=== PATIENT | female | born 1990 ===

== ENCOUNTER 2021-02-02 13:03 | Outpatient (CLI) | payer OTHER ==
[2021-02-02 16:31] LABS: Bacteria,Urine 1+ /HPF (Negative); Mucus,Urine FEW /HPF
[2021-02-02 16:32] LABS: Bilirubin,Urine NEG (Negative); Blood,Urine NEG (Negative); Color,Urine Yellow (Yellow); Protein,Urine >500 mg/dL (Negative); Urobilinogen,Urine < 2.0 mg/dL (<2.0)
[2021-02-02 16:47] LABS: Hematocrit 31.3 % (30.3-42.9); Hemoglobin 10.8 gm/dl (10.1-14.3); Mean Corpuscular HGB Conc 34 % (30-34); Mean Corpuscular Volume 91 fl (79-97); Platelet Count 207 K/mm3 (140-440); Red Blood Count 3.45 M/mm3 (3.65-5.03); Red Cell Distribution Width 14.2 % (13.2-15.2)
[2021-02-02] MEDS ORDERED: ACETAMINOPHEN 500 MG TAB PO ONE (17:03)
[2021-02-02 17:10] LABS: Alanine Aminotransferase 11 units/L (7-56)
[2021-02-02 18:09] VITALS: BP 129/77
== END 2021-02-02 18:54 | disposition home or self-care (01) ==
LOC: TRG 13:03 → APU 13:06 → TRG 18:54
DX: O13.3 Gestational [pregnancy-induced] hypertension without significant proteinuria, third trimester (principal); Z3A.39 39 weeks gestation of pregnancy
CPT/HCPCS: 36415; 59025; 81001; 82565; 83615; 84450; 84460; 84550; 85027

== ENCOUNTER 2021-02-05 10:44 | Inpatient (IN) | payer OTHER ==
[2021-02-05 11:49] LABS: Hematocrit 32.3 % (30.3-42.9); Hemoglobin 10.9 gm/dl (10.1-14.3); Mean Corpuscular HGB Conc 34 % (30-34); Mean Corpuscular Volume 92 fl (79-97); Platelet Count 228 K/mm3 (140-440); Red Blood Count 3.53 M/mm3 (3.65-5.03); Red Cell Distribution Width 14.7 % (13.2-15.2)
--- NOTE | 2021-02-05 13:06 | Ultrasound Report ---
US OB BPP WO NON-STRESS US OB LIMITED INDICATION / CLINICAL INFORMATION: decreased fm. COMPARISON: 2 days prior FINDINGS: breathing movement = 2 Gross body movement = 2 tone = 2 Qualitative amniotic fluid volume = 2 Total biophysical score = 8/8 Amniotic fluid index is 17.6 cm. Presentation is Cephalic. heart rate is 151-171 beats per minute. IMPRESSION: 1. biophysical profile = 05/02 2. Amniotic fluid index is 17.6 cm (previously 13.9 cm). Signer Name: Дмитрий Boland MD Signed: 02/05/2021 1:01 PM Workstation Name: [id number]
[2021-02-05 13:19] LABS: Alanine Aminotransferase 13 units/L (7-56); Uric Acid 5.5 mg/dL (3.5-7.6)
[2021-02-05 14:44] LABS: Bilirubin,Urine NEG (Negative); Blood,Urine NEG (Negative); Color,Urine Yellow (Yellow); Mucus,Urine FEW /HPF; Urobilinogen,Urine < 2.0 mg/dL (<2.0)
[2021-02-05 14:50] LABS: Protein,Urine >500 mg/dL (Negative)
[2021-02-05] MEDS ORDERED: TERBUTALINE 1 MG/1 ML INJ SUB-Q PRN (15:37)
[2021-02-05] MEDS ORDERED: LIDOCAINE (2%) 20 MG/1 ML VIAL 20 ML MDV INFILTRATI ONE (15:37)
[2021-02-05] MEDS ORDERED: ePHEDrine SULFATE 50 MG/1 ML INJ IV PRN (15:37)
[2021-02-05] MEDS ORDERED: DINOPROSTONE 10 MG VAG SUPP VG NR (15:37)
[2021-02-05] MEDS ORDERED: MAGNESIUM SULFATE 4 GM/100 ML BAG IV ONE (15:40)
[2021-02-05] MEDS ORDERED: LACTATED RINGERS 1,000 ML IV SCH (15:45)
[2021-02-05] MEDS ORDERED: LACTATED RINGERS 1,000 ML ONE (15:49)
[2021-02-05] MEDS ORDERED: ACETAMINOPHEN 500 MG TAB PO ONE ×2 (15:49→21:15)
[2021-02-05] MEDS ORDERED: OXYTOCIN DRIP 30 UNITS/500 ML BAG IV SCH ×2 (16:00→18:00)
[2021-02-05] MEDS: MAGNESIUM SULFATE 40GM/1000ML 40 GM/1,000 ML BAG IV SCH (16:49)
--- NOTE | 2021-02-05 17:24 | History and Physical Report ---
History of Present Illness Date of examination: 02/05/21 Date of admission: 02/05/2021 Chief complaint: Headache, nausea, decreased movement. History of present illness: 30 year old female sent from office due to persistent headache and decreased movement for at least past 3 days. Patient reports headache was not relieved by Tylenol. Reports nausea. Denies visual disturbance. Patient received care at [facility] and records are available. LMP 05/02/2020. EDC 02/06/21. Confirmed by US done at 25 weeks in [place]. significant for the following: Late transfer in from [place], anemia (on iron supplementation), hypothyroidism (has had partial thyroidectomy); takes levothyroxine 100 mcg daily, late care, elevated blood pressures past few visits at the office. labs are as follows: B+, antibody screen negative, rubella immune, hepatitis B surface antigen negative, HIV negative, RPR nonreactive, gonorrhea negative, chlamydia negative, 1 hour sugar test 130, GBS negative. Past History Past Medical History: other (thyroid disease) Past Surgical History: thyroid (partial thyroidectomy) [facility] History: denies: chlamydia, gonorrhea, hepatitis B, herpes, HIV, syphilis, trichomonas Family/Genetic History: none Social history: single, full code. denies: smoking, alcohol abuse, IV drug use - Obstetrical History Expected Date of Delivery: 02/06/21 Actual Gestation: 39 Week(s) 6 Day(s) : 1 Para: 0 Hx # Term Pregnancies: 0 Number of Pregnancies: 0 Spontaneous Abortions: 0 Induced : 0 Number of Living Children: 0 Medications and Allergies Allergies Allergy/AdvReac Type Severity Reaction Status Date / Time No Known Allergies Allergy Verified 02/02/21 15:13 Active Meds: Active Medications Acetaminophen (Acetaminophen 500 Mg Tab) 500 mg PO ONCE ONE Stop: 02/05/21 15:50 Dinoprostone (Dinoprostone 10 Mg Vag Supp) 10 mg VG ONCE ONE Stop: 02/05/21 15:38 Ephedrine Sulfate (Ephedrine Sulfate 50 Mg/1 Ml Inj) 10 mg IV Q2M PRN PRN Reason: Hypotension Lactated Ringer's (Lactated Ringers) 1,000 mls @ 125 mls/hr IV DIRECT MIGUE Oxytocin/Sodium Chloride (Pitocin/Ns 30 Unit/500ml) 30 units in 500 mls @ 40 mls/hr IV TITR MIGUE; Protocol Magnesium Sulfate (Magnesium Sulfate 4gm/100ml) 4 gm in 100 mls @ 300 mls/hr IV ONCE ONE Stop: 02/05/21 15:59 Magnesium Sulfate (Magnesium Sulfate 40gm/1000ml) 40 gm in 1,000 mls @ 50 mls/hr IV DIRECT MIGUE Lidocaine (Lidocaine (2%) 20 Mg/1 Ml Vial 20 Ml Mdv) 20 ml INFILTRATI ONCE ONE Stop: 02/05/21 15:38 Terbutaline Sulfate (Terbutaline 1 Mg/1 Ml Inj) 0.25 mg SUB-Q ONCE PRN PRN Reason: Hyperstimulation/Hypertonicity Review of Systems All systems: negative (headache, nausea, and decreased movement) - Vital Signs Vital signs: Vital Signs Pulse BP 84 136/85 02/05/21 11:07 02/05/21 11:07 Temp Pulse Resp BP Pulse Ox 97.7 F 76 163/86 96 02/05/21 15:46 02/05/21 15:46 02/05/21 15:37 02/05/21 15:46 - Physical Exam Abdomen: Positive: normal appearance, soft. Negative: distention, tenderness, guarding, rigidity Genitourinary (Female): Positive: normal external genitalia, normal perenium. Negative: perineal/vulvar lesions Vagina: Positive: normal moisture Uterus: Positive: enlarged. Negative: tender Anus/Rectum: Positive: normal perianal skin Extremities: Negative: tenderness - Obstetrical FHR: category 1 Uterine Contraction Monitor Mode: External Cervical Dilatation: 1 Cervical Effacement Percentage: 50 station: -1 Uterine Contraction Pattern: Absent Uterine Contraction Intensity: Mild Results Result Diagrams: 02/05/21 Unknown 02/05/21 Unknown Abnormal lab results 02/05/21 02/05/21 Range/Units Unknown Unknown RBC 3.53 L (3.65-5.03) M/mm3 Lactate Dehydrogenase 230 H (91-180) units/L All other labs normal. Assessment and Plan A: at 39 weeks, 6 days gestation. Preeclampsia with severe features. Hypothyroidism; partial thyroidectomy. GBS negative. P: Admit. Labs. Continuous EFM. Cervidil for cervical ripening, followed by IOL. Discussed cervical ripening and IOL and patient gave consent. Magnesium Sulfate. Consulted with Dr. Cardona re: this patient. Patient will be co-managed with MD due to preeclampsia with severe features.
[2021-02-05] MEDS: fentaNYL 100 MCG/2 ML INJ IV PRN (21:43)
[2021-02-06] MEDS ORDERED: LACTATED RINGERS 1,000 ML ONE (00:27)
[2021-02-06] MEDS: fentaNYL 100 MCG/2 ML INJ IV PRN ×2 (00:44→21:34)
[2021-02-06] MEDS ORDERED: ACETAMINOPHEN 500 MG TAB PO ONE (05:56)
[2021-02-06] MEDS: LACTATED RINGERS 1,000 ML IV SCH ×3 (06:31→21:58)
--- NOTE | 2021-02-06 06:56 | Progress Note ---
Assessment and Plan A: at 40 weeks gestation. Preeclampsia with severe features. Hypothyroidism. P: Continuous EFM. Continue Pitocin IOL. Continue magnesium sulfate. Report given to Dr. Cardona who takes over at 08:00 am. Subjective - Subjective Date of service: 02/06/21 Principal diagnosis: at 40 weeks; IOL Interval history: Patient states headache is improving. Blood glucose 87. Patient is being induced with Pitocin due to preeclampsia with severe features. She is receiving magnesium sulfate. Patient reports: contractions, no loss of fluid, no vaginal bleeding Objective - Vital Signs Vital Signs: Vital Signs - 12hr 02/05/21 02/05/21 02/05/21 18:51 18:56 19:01 Temperature Pulse Rate 87 77 100 H Respiratory Rate Blood Pressure Blood Pressure [Right] O2 Sat by Pulse 96 97 97 Oximetry 02/05/21 02/05/21 02/05/21 19:02 19:04 19:06 Temperature 97.6 F Pulse Rate 84 92 H Respiratory 16 Rate Blood Pressure 131/81 Blood Pressure 131/81 [Right] O2 Sat by Pulse 97 Oximetry 02/05/21 02/05/21 02/05/21 19:11 19:16 19:21 Temperature Pulse Rate 81 83 80 Respiratory Rate Blood Pressure Blood Pressure [Right] O2 Sat by Pulse 96 96 96 Oximetry 02/05/21 02/05/21 02/05/21 19:26 19:31 19:36 Temperature Pulse Rate 86 90 88 Respiratory Rate Blood Pressure Blood Pressure [Right] O2 Sat by Pulse 96 97 96 Oximetry 02/05/21 02/05/21 02/05/21 19:37 19:41 19:46 Temperature Pulse Rate 83 92 H 85 Respiratory Rate Blood Pressure 132/82 Blood Pressure [Right] O2 Sat by Pulse 97 97 Oximetry 02/05/21 02/05/21 02/05/21 19:51 19:56 20:01 Temperature Pulse Rate 109 H 87 82 Respiratory Rate Blood Pressure Blood Pressure [Right] O2 Sat by Pulse 96 96 95 Oximetry 02/05/21 02/05/21 02/05/21 20:06 20:11 20:16 Temperature Pulse Rate 85 108 H 91 H Respiratory Rate Blood Pressure 123/69 Blood Pressure [Right] O2 Sat by Pulse 96 97 96 Oximetry 02/05/21 02/05/21 02/05/21 20:21 20:26 20:31 Temperature Pulse Rate 80 85 102 H Respiratory Rate Blood Pressure Blood Pressure [Right] O2 Sat by Pulse 97 95 97 Oximetry 02/05/21 02/05/21 02/05/21 20:36 20:41 20:46 Temperature Pulse Rate 85 114 H 100 H Respiratory Rate Blood Pressure 122/78 Blood Pressure [Right] O2 Sat by Pulse 96 97 95 Oximetry 02/05/21 02/05/21 02/05/21 20:51 20:56 21:01 Temperature Pulse Rate 102 H 79 82 Respiratory Rate Blood Pressure Blood Pressure [Right] O2 Sat by Pulse 97 96 96 Oximetry 02/05/21 02/05/21 02/05/21 21:06 21:11 21:16 Temperature Pulse Rate 103 H 91 H 87 Respiratory Rate Blood Pressure 115/68 Blood Pressure [Right] O2 Sat by Pulse 97 96 96 Oximetry 02/05/21 02/05/21 02/05/21 21:21 21:26 21:31 Temperature 97.8 F Pulse Rate 90 87 99 H Respiratory Rate Blood Pressure Blood Pressure [Right] O2 Sat by Pulse 97 96 96 Oximetry 02/05/21 02/05/21 02/05/21 21:36 21:37 21:41 Temperature Pulse Rate 82 90 111 H Respiratory Rate Blood Pressure 120/83 Blood Pressure [Right] O2 Sat by Pulse 96 97 Oximetry 02/05/21 02/05/21 02/05/21 21:42 21:46 21:50 Temperature Pulse Rate 83 90 92 H Respiratory Rate Blood Pressure Blood Pressure [Right] O2 Sat by Pulse 94 96 94 Oximetry 02/05/21 02/05/21 02/05/21 21:51 21:56 21:57 Temperature Pulse Rate 91 H 98 H 100 H Respiratory Rate Blood Pressure Blood Pressure [Right] O2 Sat by Pulse 96 97 94 Oximetry 02/05/21 02/05/21 02/05/21 22:01 22:06 22:08 Temperature Pulse Rate 81 78 78 Respiratory Rate Blood Pressure 120/75 Blood Pressure [Right] O2 Sat by Pulse 96 95 Oximetry 02/05/21 02/05/21 02/05/21 22:11 22:16 22:21 Temperature Pulse Rate 84 85 78 Respiratory Rate Blood Pressure Blood Pressure [Right] O2 Sat by Pulse 96 97 96 Oximetry 02/05/21 02/05/21 02/05/21 22:26 22:31 22:36 Temperature Pulse Rate 75 82 83 Respiratory Rate Blood Pressure 117/70 Blood Pressure [Right] O2 Sat by Pulse 96 97 96 Oximetry 02/05/21 02/05/21 02/05/21 22:41 22:46 22:51 Temperature Pulse Rate 90 79 78 Respiratory Rate Blood Pressure Blood Pressure [Right] O2 Sat by Pulse 95 98 97 Oximetry 02/05/21 02/05/21 02/05/21 22:54 22:56 23:01 Temperature Pulse Rate 76 80 81 Respiratory Rate Blood Pressure Blood Pressure [Right] O2 Sat by Pulse 94 96 97 Oximetry 02/05/21 02/05/21 02/05/21 23:06 23:11 23:16 Temperature Pulse Rate 84 75 75 Respiratory Rate Blood Pressure 120/73 Blood Pressure [Right] O2 Sat by Pulse 97 96 96 Oximetry 02/05/21 02/05/21 02/05/21 23:21 23:26 23:31 Temperature Pulse Rate 86 86 86 Respiratory Rate Blood Pressure Blood Pressure [Right] O2 Sat by Pulse 96 97 97 Oximetry 02/05/21 02/05/21 02/05/21 23:36 23:41 23:45 Temperature Pulse Rate 80 74 95 H Respiratory Rate Blood Pressure 114/71 Blood Pressure [Right] O2 Sat by Pulse 96 96 93 Oximetry 02/05/21 02/05/21 02/05/21 23:46 23:51 23:56 Temperature Pulse Rate 78 74 89 Respiratory Rate Blood Pressure Blood Pressure [Right] O2 Sat by Pulse 93 95 97 Oximetry 02/06/21 02/06/21 02/06/21 00:01 00:06 00:09 Temperature Pulse Rate 81 82 81 Respiratory Rate Blood Pressure 117/69 Blood Pressure [Right] O2 Sat by Pulse 96 96 94 Oximetry 02/06/21 02/06/21 02/06/21 00:11 00:16 00:21 Temperature Pulse Rate 88 81 78 Respiratory Rate Blood Pressure Blood Pressure [Right] O2 Sat by Pulse 97 96 96 Oximetry 02/06/21 02/06/21 02/06/21 00:26 00:30 00:31 Temperature Pulse Rate 83 77 87 Respiratory Rate Blood Pressure Blood Pressure [Right] O2 Sat by Pulse 96 94 97 Oximetry 02/06/21 02/06/21 02/06/21 00:35 00:36 00:41 Temperature 97.4 F L Pulse Rate 82 85 Respiratory Rate Blood Pressure 116/59 Blood Pressure [Right] O2 Sat by Pulse 96 96 Oximetry 02/06/21 02/06/21 02/06/21 00:46 00:51 00:52 Temperature Pulse Rate 94 H 87 76 Respiratory Rate Blood Pressure Blood Pressure [Right] O2 Sat by Pulse 97 96 94 Oximetry 02/06/21 02/06/21 02/06/21 00:56 01:01 01:06 Temperature Pulse Rate 75 78 87 Respiratory Rate Blood Pressure 110/62 Blood Pressure [Right] O2 Sat by Pulse 95 96 96 Oximetry 02/06/21 02/06/21 02/06/21 01:11 01:16 01:21 Temperature Pulse Rate 86 77 83 Respiratory Rate Blood Pressure Blood Pressure [Right] O2 Sat by Pulse 96 96 96 Oximetry 02/06/21 02/06/21 02/06/21 01:26 01:31 01:36 Temperature Pulse Rate 73 72 96 H Respiratory Rate Blood Pressure 115/65 Blood Pressure [Right] O2 Sat by Pulse 96 95 96 Oximetry 02/06/21 02/06/21 02/06/21 01:41 01:45 01:46 Temperature Pulse Rate 83 76 72 Respiratory Rate Blood Pressure Blood Pressure [Right] O2 Sat by Pulse 96 94 96 Oximetry 02/06/21 02/06/21 02/06/21 01:51 01:56 02:01 Temperature Pulse Rate 78 73 77 Respiratory Rate Blood Pressure Blood Pressure [Right] O2 Sat by Pulse 96 96 95 Oximetry 02/06/21 02/06/21 02/06/21 02:06 02:09 02:11 Temperature Pulse Rate 85 79 76 Respiratory Rate Blood Pressure 109/64 Blood Pressure [Right] O2 Sat by Pulse 96 94 96 Oximetry 02/06/21 02/06/21 02/06/21 02:16 02:21 02:26 Temperature Pulse Rate 77 85 78 Respiratory Rate Blood Pressure Blood Pressure [Right] O2 Sat by Pulse 96 96 96 Oximetry 02/06/21 02/06/21 02/06/21 02:31 02:36 02:41 Temperature Pulse Rate 84 84 74 Respiratory Rate Blood Pressure 114/69 Blood Pressure [Right] O2 Sat by Pulse 96 96 96 Oximetry 02/06/21 02/06/21 02/06/21 02:46 02:51 02:56 Temperature Pulse Rate 78 86 91 H Respiratory Rate Blood Pressure Blood Pressure [Right] O2 Sat by Pulse 95 97 97 Oximetry 02/06/21 02/06/21 02/06/21 03:01 03:06 03:11 Temperature 98.0 F Pulse Rate 82 84 77 Respiratory 17 Rate Blood Pressure 117/70 Blood Pressure [Right] O2 Sat by Pulse 96 96 96 Oximetry 02/06/21 02/06/21 02/06/21 03:16 03:21 03:26 Temperature Pulse Rate 83 88 89 Respiratory Rate Blood Pressure Blood Pressure [Right] O2 Sat by Pulse 96 96 98 Oximetry 02/06/21 02/06/21 02/06/21 03:31 03:36 03:37 Temperature Pulse Rate 79 88 88 Respiratory Rate Blood Pressure 112/66 Blood Pressure [Right] O2 Sat by Pulse 98 98 Oximetry 02/06/21 02/06/21 02/06/21 03:41 03:46 03:51 Temperature Pulse Rate 76 83 82 Respiratory Rate Blood Pressure Blood Pressure [Right] O2 Sat by Pulse 98 99 97 Oximetry 02/06/21 02/06/21 02/06/21 03:56 04:01 04:06 Temperature Pulse Rate 77 80 80 Respiratory Rate Blood Pressure Blood Pressure [Right] O2 Sat by Pulse 96 96 96 Oximetry 02/06/21 02/06/21 02/06/21 04:07 04:11 04:16 Temperature Pulse Rate 85 93 H 79 Respiratory Rate Blood Pressure 108/65 Blood Pressure [Right] O2 Sat by Pulse 96 96 Oximetry 02/06/21 02/06/21 02/06/21 04:21 04:26 04:31 Temperature Pulse Rate 77 78 83 Respiratory Rate Blood Pressure Blood Pressure [Right] O2 Sat by Pulse 96 96 95 Oximetry 02/06/21 02/06/21 02/06/21 04:36 04:37 04:41 Temperature Pulse Rate 73 74 85 Respiratory Rate Blood Pressure 108/66 Blood Pressure [Right] O2 Sat by Pulse 96 96 Oximetry 02/06/21 02/06/21 02/06/21 04:46 04:51 04:56 Temperature Pulse Rate 80 73 73 Respiratory Rate Blood Pressure Blood Pressure [Right] O2 Sat by Pulse 96 96 95 Oximetry 02/06/21 02/06/21 02/06/21 05:01 05:06 05:11 Temperature Pulse Rate 85 70 75 Respiratory Rate Blood Pressure 107/55 Blood Pressure [Right] O2 Sat by Pulse 96 96 96 Oximetry 02/06/21 02/06/21 02/06/21 05:16 05:21 05:26 Temperature Pulse Rate 68 82 84 Respiratory Rate Blood Pressure Blood Pressure [Right] O2 Sat by Pulse 96 96 97 Oximetry 02/06/21 02/06/21 02/06/21 05:31 05:36 05:41 Temperature Pulse Rate 78 77 79 Respiratory Rate Blood Pressure 118/67 Blood Pressure [Right] O2 Sat by Pulse 96 97 96 Oximetry 02/06/21 02/06/21 02/06/21 05:46 05:51 05:56 Temperature Pulse Rate 82 79 75 Respiratory Rate Blood Pressure Blood Pressure [Right] O2 Sat by Pulse 97 97 97 Oximetry 02/06/21 02/06/21 02/06/21 06:01 06:05 06:06 Temperature Pulse Rate 74 75 Respiratory 18 Rate Blood Pressure 122/75 Blood Pressure [Right] O2 Sat by Pulse 97 96 Oximetry 02/06/21 02/06/21 02/06/21 06:11 06:16 06:21 Temperature Pulse Rate 79 71 74 Respiratory Rate Blood Pressure Blood Pressure [Right] O2 Sat by Pulse 96 97 96 Oximetry 02/06/21 02/06/21 02/06/21 06:26 06:31 06:36 Temperature Pulse Rate 72 75 80 Respiratory Rate Blood Pressure 132/76 Blood Pressure [Right] O2 Sat by Pulse 97 96 96 Oximetry 02/06/21 02/06/21 06:41 06:43 Temperature Pulse Rate 72 94 H Respiratory Rate Blood Pressure Blood Pressure [Right] O2 Sat by Pulse 96 94 Oximetry - Exam Abdomen: Present: normal appearance, soft FHR: category 1 Uterine Contraction Monitor Mode: External Cervical Dilatation: 2 Cervical Effacement Percentage: 80 station: -1 Uterine Contraction Pattern: Regular Uterine Contraction Intensity: Moderate - Labs Labs: Abnormal Labs 02/05/21 02/05/21 02/05/21 22:05 Unknown Unknown RBC 3.53 L Magnesium 5.90 H Lactate Dehydrogenase 230 H 02/06/21 04:11 RBC Magnesium 6.30 H Lactate Dehydrogenase Laboratory Results - last 24 hr 02/05/21 02/05/21 02/05/21 15:50 15:50 15:50 WBC RBC Hgb Hct MCV MCH MCHC RDW Plt Count Creatinine Estimated GFR Uric Acid Magnesium 1.90 AST ALT Lactate Dehydrogenase Urine Color Urine Turbidity Urine pH Ur Specific [place] Urine Protein Urine Glucose (UA) Urine Ketones Urine Blood Urine Nitrite Urine Bilirubin Urine Urobilinogen Ur Leukocyte Esterase Urine WBC (Auto) Urine RBC (Auto) U Epithel Cells (Auto) Urine Mucus Syphilis IgG Antibody Nonreactive Blood Type B POSITIVE Antibody Screen Negative 02/05/21 02/05/21 02/05/21 22:05 Unknown Unknown WBC 6.7 RBC 3.53 L Hgb 10.9 Hct 32.3 MCV 92 MCH 31 MCHC 34 RDW 14.7 Plt Count 228 Creatinine Estimated GFR Uric Acid Magnesium 5.90 H AST ALT Lactate Dehydrogenase Urine Color Yellow Urine Turbidity Slightly-cloudy Urine pH 6.0 Ur Specific [place] 1.023 Urine Protein >500 Urine Glucose (UA) Neg Urine Ketones Neg Urine Blood Neg Urine Nitrite Neg Urine Bilirubin Neg Urine Urobilinogen < 2.0 Ur Leukocyte Esterase Neg Urine WBC (Auto) 4.0 Urine RBC (Auto) 6.0 U Epithel Cells (Auto) 7.0 Urine Mucus Few Syphilis IgG Antibody Blood Type Antibody Screen 02/05/21 02/06/21 Unknown 04:11 WBC RBC Hgb Hct MCV MCH MCHC RDW Plt Count Creatinine 0.7 Estimated GFR > 60 Uric Acid 5.5 Magnesium 6.30 H AST 24 ALT 13 Lactate Dehydrogenase 230 H Urine Color Urine Turbidity Urine pH Ur Specific [place] Urine Protein Urine Glucose (UA) Urine Ketones Urine Blood Urine Nitrite Urine Bilirubin Urine Urobilinogen Ur Leukocyte Esterase Urine WBC (Auto) Urine RBC (Auto) U Epithel Cells (Auto) Urine Mucus Syphilis IgG Antibody Blood Type Antibody Screen
[2021-02-06] MEDS ORDERED: oxyCODONE /ACETAMINOPHEN 5-325MG TAB PO ONE (08:15)
[2021-02-06] MEDS: BUTALB/ACETAMINOPHEN/CAFFEINE TAB PO PRN ×2 (14:36→18:34)
[2021-02-06] MEDS ORDERED: ONDANSETRON 4 MG/2 ML INJ IV PRN ×2 (18:52→23:43)
[2021-02-06 19:41] LABS: Alanine Aminotransferase 13 units/L (7-56); Albumin 3.1 g/dL (3.9-5); Blood Urea Nitrogen 8 mg/dL (7-17); Calcium 6.9 mg/dL (8.4-10.2); Hemolysis Index 8
[2021-02-06 19:52] LABS: BUN/Creatinine Ratio 11
[2021-02-06] MEDS ORDERED: FAMOTIDINE 20 MG/2 ML INJ IV ONE (19:52)
[2021-02-06] MEDS ORDERED: DINOPROSTONE 10 MG VAG SUPP VG SCH (20:34)
[2021-02-06] MEDS: MAGNESIUM SULFATE 40GM/1000ML 40 GM/1,000 ML BAG IV SCH (21:58)
[2021-02-06] MEDS ORDERED: BUPIVACAINE/PF (0.5%) 5 MG/1 ML 30 ML VIAL INFILTRATI ONE (23:24)
[2021-02-06] MEDS ORDERED: KETOROLAC 30 MG/1 ML INJ ONE (23:24)
[2021-02-06] MEDS ORDERED: ONDANSETRON 4 MG/2 ML INJ ONE (23:25)
--- NOTE | 2021-02-06 23:30 | Progress Note ---
Subjective - Subjective Date of service: 02/06/21 Principal diagnosis: at 40 weeks; IOL Interval history: The patient's case and options were discussed with the patient at length via japanese interpreter. Patient has been in the induction process for over 30 hours now with minimal cervical change. She started after 1 cm yesterday and has been 2 cm all day today despite induction agents and Pitocin. Patient's blood pressures are stable but she has been having bothersome headaches since she has been in the hospital. Patient is also becoming very tired and frustrated with the length of the induction with minimal cervical change and is very remote from delivery. As a result, patient has elected to stop the induction and to proceed with a primary low transverse . Patient fully consented for the surgery. Risks, benefits, and alternatives were all discussed with the patient including risk of bleeding, infection, and potential for injury. Patient understands and accepts these risks. Patient agrees to proceed with surgery. All questions were answered. Patient reports: no loss of fluid, no vaginal bleeding Objective - Vital Signs Vital Signs: Vital Signs - 12hr 02/06/21 02/06/21 02/06/21 11:31 11:36 11:41 Temperature Pulse Rate 86 72 80 Respiratory Rate Blood Pressure 123/70 Blood Pressure [Right] O2 Sat by Pulse 96 95 96 Oximetry 02/06/21 02/06/21 02/06/21 11:46 11:51 11:56 Temperature Pulse Rate 82 94 H 91 H Respiratory Rate Blood Pressure Blood Pressure [Right] O2 Sat by Pulse 96 96 96 Oximetry 02/06/21 02/06/21 02/06/21 12:00 12:01 12:06 Temperature 98.1 F Pulse Rate 92 H 91 H Respiratory 16 Rate Blood Pressure 125/80 Blood Pressure [Right] O2 Sat by Pulse 96 97 96 Oximetry 02/06/21 02/06/21 02/06/21 12:11 12:16 12:21 Temperature Pulse Rate 88 84 88 Respiratory Rate Blood Pressure Blood Pressure [Right] O2 Sat by Pulse 97 96 97 Oximetry 02/06/21 02/06/21 02/06/21 12:26 12:31 12:36 Temperature Pulse Rate 91 H 87 89 Respiratory Rate Blood Pressure Blood Pressure [Right] O2 Sat by Pulse 97 96 96 Oximetry 02/06/21 02/06/21 02/06/21 12:37 12:41 12:46 Temperature Pulse Rate 90 85 89 Respiratory Rate Blood Pressure 117/75 Blood Pressure [Right] O2 Sat by Pulse 97 96 Oximetry 02/06/21 02/06/21 02/06/21 12:51 12:56 13:01 Temperature Pulse Rate 84 83 100 H Respiratory Rate Blood Pressure Blood Pressure [Right] O2 Sat by Pulse 97 96 97 Oximetry 02/06/21 02/06/21 02/06/21 13:06 13:11 13:16 Temperature Pulse Rate 86 88 86 Respiratory Rate Blood Pressure 141/77 Blood Pressure [Right] O2 Sat by Pulse 97 96 96 Oximetry 02/06/21 02/06/21 02/06/21 13:21 13:26 13:31 Temperature Pulse Rate 87 86 81 Respiratory Rate Blood Pressure Blood Pressure [Right] O2 Sat by Pulse 96 96 96 Oximetry 02/06/21 02/06/21 02/06/21 13:36 13:41 14:19 Temperature Pulse Rate 89 96 H 84 Respiratory Rate Blood Pressure 118/74 Blood Pressure [Right] O2 Sat by Pulse 97 97 96 Oximetry 02/06/21 02/06/21 02/06/21 14:20 14:24 14:29 Temperature Pulse Rate 80 77 77 Respiratory Rate Blood Pressure 119/73 Blood Pressure [Right] O2 Sat by Pulse 96 96 Oximetry 02/06/21 02/06/21 02/06/21 14:34 14:39 14:43 Temperature 98.5 F Pulse Rate 80 83 Respiratory 16 Rate Blood Pressure Blood Pressure [Right] O2 Sat by Pulse 96 97 Oximetry 02/06/21 02/06/21 02/06/21 14:44 14:49 14:54 Temperature Pulse Rate 88 88 90 Respiratory Rate Blood Pressure Blood Pressure [Right] O2 Sat by Pulse 96 97 97 Oximetry 02/06/21 02/06/21 02/06/21 14:59 15:04 15:06 Temperature Pulse Rate 95 H 89 86 Respiratory Rate Blood Pressure 119/77 Blood Pressure [Right] O2 Sat by Pulse 97 95 Oximetry 02/06/21 02/06/21 02/06/21 15:09 15:14 15:19 Temperature Pulse Rate 88 89 85 Respiratory Rate Blood Pressure Blood Pressure [Right] O2 Sat by Pulse 96 96 97 Oximetry 05/15/21 05/15/21 05/15/21 15:24 15:29 15:34 Temperature Pulse Rate 87 95 H 86 Respiratory Rate Blood Pressure Blood Pressure [Right] O2 Sat by Pulse 97 96 97 Oximetry 02/06/21 02/06/21 02/06/21 15:36 15:39 15:44 Temperature Pulse Rate 85 89 89 Respiratory Rate Blood Pressure 121/70 Blood Pressure [Right] O2 Sat by Pulse 96 97 Oximetry 02/06/21 02/06/21 02/06/21 15:49 15:54 15:59 Temperature Pulse Rate 89 86 83 Respiratory Rate Blood Pressure Blood Pressure [Right] O2 Sat by Pulse 97 96 96 Oximetry 02/06/21 02/06/21 02/06/21 16:04 16:06 16:09 Temperature Pulse Rate 82 86 89 Respiratory Rate Blood Pressure 147/60 Blood Pressure [Right] O2 Sat by Pulse 97 96 Oximetry 02/06/21 02/06/21 02/06/21 16:14 16:19 16:24 Temperature Pulse Rate 89 88 89 Respiratory Rate Blood Pressure Blood Pressure [Right] O2 Sat by Pulse 96 96 97 Oximetry 02/06/21 02/06/21 02/06/21 16:29 16:34 16:37 Temperature Pulse Rate 92 H 90 87 Respiratory Rate Blood Pressure 128/79 Blood Pressure [Right] O2 Sat by Pulse 96 96 Oximetry 02/06/21 02/06/21 02/06/21 16:39 16:44 16:49 Temperature 97.6 F Pulse Rate 82 85 80 Respiratory 16 Rate Blood Pressure Blood Pressure [Right] O2 Sat by Pulse 96 97 97 Oximetry 02/06/21 02/06/21 02/06/21 16:54 16:59 17:04 Temperature Pulse Rate 82 80 74 Respiratory Rate Blood Pressure Blood Pressure [Right] O2 Sat by Pulse 97 96 96 Oximetry 02/06/21 02/06/21 02/06/21 17:07 17:09 17:14 Temperature Pulse Rate 78 86 78 Respiratory Rate Blood Pressure 118/72 Blood Pressure [Right] O2 Sat by Pulse 96 96 Oximetry 02/06/21 02/06/21 02/06/21 17:19 17:24 17:29 Temperature Pulse Rate 80 80 90 Respiratory Rate Blood Pressure Blood Pressure [Right] O2 Sat by Pulse 96 96 97 Oximetry 02/06/21 02/06/21 02/06/21 17:34 17:36 17:39 Temperature Pulse Rate 79 81 92 H Respiratory Rate Blood Pressure 122/81 Blood Pressure [Right] O2 Sat by Pulse 96 96 Oximetry 02/06/21 02/06/21 02/06/21 17:44 17:49 17:54 Temperature Pulse Rate 85 95 H 87 Respiratory Rate Blood Pressure Blood Pressure [Right] O2 Sat by Pulse 97 96 97 Oximetry 02/06/21 02/06/21 02/06/21 17:59 18:04 18:06 Temperature Pulse Rate 91 H 85 78 Respiratory Rate Blood Pressure 134/81 Blood Pressure [Right] O2 Sat by Pulse 97 97 Oximetry 02/06/21 02/06/21 02/06/21 18:08 18:09 18:14 Temperature Pulse Rate 88 90 80 Respiratory Rate Blood Pressure Blood Pressure [Right] O2 Sat by Pulse 94 96 96 Oximetry 02/06/21 02/06/21 02/06/21 18:19 18:24 18:29 Temperature Pulse Rate 84 85 89 Respiratory Rate Blood Pressure Blood Pressure [Right] O2 Sat by Pulse 97 97 96 Oximetry 02/06/21 02/06/21 02/06/21 18:34 18:36 18:39 Temperature Pulse Rate 84 87 100 H Respiratory Rate Blood Pressure 144/89 140/84 Blood Pressure [Right] O2 Sat by Pulse 97 Oximetry 02/06/21 02/06/21 02/06/21 18:52 18:57 19:02 Temperature Pulse Rate 86 84 84 Respiratory Rate Blood Pressure Blood Pressure [Right] O2 Sat by Pulse 96 96 96 Oximetry 02/06/21 02/06/21 02/06/21 19:06 19:07 19:12 Temperature 98.8 F Pulse Rate 84 84 80 Respiratory 16 Rate Blood Pressure 127/83 Blood Pressure 127/83 [Right] O2 Sat by Pulse 97 97 97 Oximetry 02/06/21 02/06/21 02/06/21 19:17 19:22 19:27 Temperature Pulse Rate 86 86 86 Respiratory Rate Blood Pressure Blood Pressure [Right] O2 Sat by Pulse 97 96 97 Oximetry 02/06/21 02/06/21 02/06/21 19:32 19:36 19:37 Temperature Pulse Rate 88 81 80 Respiratory Rate Blood Pressure 119/73 Blood Pressure [Right] O2 Sat by Pulse 97 96 Oximetry 05/15/21 05/15/21 05/15/21 19:42 19:47 19:52 Temperature Pulse Rate 83 83 90 Respiratory Rate Blood Pressure Blood Pressure [Right] O2 Sat by Pulse 97 96 96 Oximetry 02/06/21 02/06/21 02/06/21 19:57 20:02 20:06 Temperature Pulse Rate 83 85 86 Respiratory Rate Blood Pressure 137/91 Blood Pressure [Right] O2 Sat by Pulse 96 97 Oximetry 02/06/21 02/06/21 02/06/21 20:07 20:12 20:17 Temperature Pulse Rate 90 87 85 Respiratory Rate Blood Pressure Blood Pressure [Right] O2 Sat by Pulse 97 97 96 Oximetry 02/06/21 02/06/21 02/06/21 20:22 20:27 20:32 Temperature Pulse Rate 91 H 83 90 Respiratory Rate Blood Pressure Blood Pressure [Right] O2 Sat by Pulse 97 96 97 Oximetry 02/06/21 02/06/21 02/06/21 20:36 20:37 20:42 Temperature Pulse Rate 93 H 89 85 Respiratory Rate Blood Pressure 128/77 Blood Pressure [Right] O2 Sat by Pulse 96 97 Oximetry 02/06/21 02/06/21 02/06/21 20:47 20:52 20:57 Temperature Pulse Rate 87 83 86 Respiratory Rate Blood Pressure Blood Pressure [Right] O2 Sat by Pulse 97 97 97 Oximetry 02/06/21 02/06/21 02/06/21 21:02 21:07 21:12 Temperature Pulse Rate 87 87 92 H Respiratory Rate Blood Pressure 132/85 Blood Pressure [Right] O2 Sat by Pulse 96 96 97 Oximetry 02/06/21 02/06/21 02/06/21 21:17 21:22 21:27 Temperature Pulse Rate 93 H 95 H 94 H Respiratory Rate Blood Pressure Blood Pressure [Right] O2 Sat by Pulse 96 97 97 Oximetry 02/06/21 02/06/21 02/06/21 21:32 21:36 21:37 Temperature Pulse Rate 94 H 122 H 103 H Respiratory Rate Blood Pressure 168/96 Blood Pressure [Right] O2 Sat by Pulse 97 94 96 Oximetry 02/06/21 02/06/21 02/06/21 21:42 21:45 21:47 Temperature Pulse Rate 112 H 111 H 103 H Respiratory Rate Blood Pressure 144/83 Blood Pressure [Right] O2 Sat by Pulse 93 96 Oximetry 02/06/21 02/06/21 02/06/21 21:52 21:57 22:02 Temperature Pulse Rate 94 H 95 H 90 Respiratory Rate Blood Pressure Blood Pressure [Right] O2 Sat by Pulse 97 96 96 Oximetry 02/06/21 02/06/21 02/06/21 22:07 22:12 22:17 Temperature Pulse Rate 90 87 85 Respiratory Rate Blood Pressure Blood Pressure [Right] O2 Sat by Pulse 96 97 96 Oximetry 02/06/21 02/06/21 02/06/21 22:22 22:27 22:32 Temperature Pulse Rate 83 93 H 83 Respiratory Rate Blood Pressure Blood Pressure [Right] O2 Sat by Pulse 97 97 96 Oximetry 02/06/21 02/06/21 02/06/21 22:37 22:42 22:45 Temperature Pulse Rate 91 H 94 H 90 Respiratory Rate Blood Pressure 145/80 Blood Pressure [Right] O2 Sat by Pulse 97 97 Oximetry 02/06/21 02/06/21 02/06/21 22:47 22:52 22:57 Temperature Pulse Rate 92 H 85 93 H Respiratory Rate Blood Pressure Blood Pressure [Right] O2 Sat by Pulse 97 97 97 Oximetry 02/06/21 02/06/21 02/06/21 23:02 23:07 23:12 Temperature Pulse Rate 92 H 91 H 89 Respiratory Rate Blood Pressure Blood Pressure [Right] O2 Sat by Pulse 97 97 96 Oximetry 02/06/21 02/06/21 23:17 23:22 Temperature Pulse Rate 95 H 94 H Respiratory Rate Blood Pressure Blood Pressure [Right] O2 Sat by Pulse 95 97 Oximetry - Labs Labs: Abnormal Labs 02/05/21 02/05/21 02/05/21 22:05 Unknown Unknown RBC 3.53 L Sodium Carbon Dioxide Calcium Magnesium 5.90 H Alkaline Phosphatase Lactate Dehydrogenase 230 H Total Protein Albumin 02/06/21 02/06/21 02/06/21 04:11 10:38 18:00 RBC Sodium 131 L Carbon Dioxide 20 L Calcium 6.9 L Magnesium 6.30 H 5.90 H Alkaline Phosphatase 158 H Lactate Dehydrogenase Total Protein 5.6 L Albumin 3.1 L 02/06/21 18:27 RBC Sodium Carbon Dioxide Calcium Magnesium 5.40 H Alkaline Phosphatase Lactate Dehydrogenase Total Protein Albumin Laboratory Results - last 24 hr 02/05/21 02/06/21 02/06/21 08:15 04:11 04:38 Sodium Potassium Chloride Carbon Dioxide Anion Gap BUN Creatinine Estimated GFR BUN/Creatinine Ratio Glucose POC Glucose 87 Calcium Magnesium 6.30 H Total Bilirubin AST ALT Alkaline Phosphatase Total Protein Albumin Albumin/Globulin Ratio Coronavirus (PCR) Negative 02/06/21 02/06/21 02/06/21 10:38 18:00 18:27 Sodium 131 L Potassium 4.4 Chloride 98.3 Carbon Dioxide 20 L Anion Gap 17 BUN 8 Creatinine 0.7 Estimated GFR > 60 BUN/Creatinine Ratio 11 Glucose 85 POC Glucose Calcium 6.9 L Magnesium 5.90 H 5.40 H Total Bilirubin 0.20 AST 29 ALT 13 Alkaline Phosphatase 158 H Total Protein 5.6 L Albumin 3.1 L Albumin/Globulin Ratio 1.2 Coronavirus (PCR)
[2021-02-06] MEDS ORDERED: diphenhydrAMINE 50 MG/ML VIAL IV PRN (23:43)
[2021-02-06] MEDS ORDERED: PROMETHAZINE 25 MG TAB PO PRN (23:43)
[2021-02-06] MEDS ORDERED: HYDROmorphone 1 MG/1 ML INJ IV PRN (23:43)
[2021-02-06] MEDS ORDERED: PROMETHAZINE 25 MG RECT SUPP PR PRN (23:43)
[2021-02-06] MEDS ORDERED: NalbUPHINE 10 MG/1 ML INJ IV PRN (23:43)
[2021-02-06] MEDS ORDERED: NALOXONE 0.4 MG/1 ML INJ IV PRN (23:43)
[2021-02-06] MEDS ORDERED: LACTATED RINGERS 1,000 ML IV SCH (23:45)
[2021-02-06] MEDS ORDERED: OXYTOCIN DRIP 30 UNITS/500 ML BAG IV SCH (23:45)
[2021-02-06] MEDS ORDERED: ceFAZolin/Water 2 GM/20 ML 2 GM/20 ML SYRINGE IV NR (23:45)
--- NOTE | 2021-02-06 23:45 | Anesthesia Consultation ---
Anesthesia Consult and Med Hx Date of service: 02/06/21 - Airway Anesthetic Teeth Evaluation: Good ROM Head & Neck: Adequate Mental/Hyoid Distance: Adequate Mallampati Class: Class II Intubation Access Assessment: Probably Good - Pulmonary Exam CTA: Yes - Cardiac Exam Cardiac Exam: RRR - Pre-Operative Health Status ASA Pre-Surgery Classification: ASA2 Proposed Anesthetic Plan: Spinal Nerve Block: TAP - Pulmonary Hx Smoking: No Hx Asthma: No Hx Sleep Apnea: No - Cardiovascular System Hx Hypertension: No Hx Heart Attack/AMI: No Hx Angina: No - Central Nervous System Hx Seizures: No Hx Psychiatric Problems: No - Gastrointestinal Hx Gastroesophageal Reflux Disease: No - Endocrine Hx Renal Disease: No Hx Liver Disease: No Hx Insulin Dependent Diabetes: No Hx Non-Insulin Dependent Diabetes: No Hx Hypothyroidism: Yes (removed) Hx Hyperthyroidism: Yes (removed her thyroid) - Hematic Hx Anemia: No Hx Sickle Cell Disease: No - Other Systems Hx Alcohol Use: No
--- NOTE | 2021-02-06 23:46 | Anesthesia Day of Surgery ---
Anesthesia Day of Surgery - Day of Surgery Patient Examined: Yes Patient H&P Reviewed: Yes Patient is NPO: Yes Beta Blockers: No Cardiac Clearance: No Pulmonary Clearance: No Wilder's Test: N/A
[2021-02-07] MEDS ORDERED: METOCLOPRAMIDE 10 MG/2 ML INJ IV ONE (00:15)
[2021-02-07] MEDS ORDERED: FAMOTIDINE 20 MG/2 ML INJ IV ONE (00:15)
[2021-02-07] MEDS ORDERED: BICITRA ORAL LIQD 30ML PO ONE (00:15)
[2021-02-07] MEDS ORDERED: ceFAZolin/STERILE WATER 2 GM/20 ML SYRINGE IV NR (01:00)
[2021-02-07] MEDS ORDERED: SODIUM CHLORIDE 0.9% IRR 1,500 ML BOTTLE IR ONE (01:20)
[2021-02-07] MEDS ORDERED: WATER FOR IRRIG STERILE 1,500 ML BOTTLE IR ONE (01:20)
--- NOTE | 2021-02-07 01:27 | Progress Note ---
Spinal Anesthesia Block - Spinal Anesthesia Block Start Time: 01:00 Stop Time: 01:10 Performed by:: MARIBELL RUIZ ([facility]) Procedure: Spinal anesthesia block is being performed for [C/S]. H&P, labs have been reviewed. Patient's questions and concerns have been answered. Informed consent has been performed. Timeout has was performed. Patient in sitting position on side of bed. Sterile prep and drape was performed. 3 mL 1% lidocaine skin wheal at L [3]-L [4]. Needle introducer advanced. 25-gauge spinal needle advanced, [+] CSF [-] blood. [Marcaine 10mg and Precedex 5mcg] Spinal dose was given. All needles removed. Patient tolerated procedure well.
[2021-02-07] MEDS ORDERED: NALOXONE 0.4 MG/1 ML INJ IV PRN (02:03)
[2021-02-07] MEDS ORDERED: LANOLIN/ZINC/DIMETHICONE (LANSINOH) 7 GM TP PRN (02:03)
[2021-02-07] MEDS ORDERED: WITCH HAZEL/ GLYCERIN PAD TP PRN (02:03)
[2021-02-07] MEDS ORDERED: KETOROLAC 30 MG/1 ML INJ IV PRN (02:03)
[2021-02-07] MEDS ORDERED: SIMETHICONE 80 MG CHEW TAB PO PRN (02:05)
[2021-02-07] MEDS ORDERED: SENNOSIDES 8.6 MG TAB PO PRN (02:05)
[2021-02-07] MEDS ORDERED: ONDANSETRON 4 MG/2 ML INJ IV PRN (02:05)
[2021-02-07] MEDS ORDERED: MAGNESIUM HYDROXIDE (MOM) ORAL LIQD UDC PO PRN (02:05)
--- NOTE | 2021-02-07 02:14 | Procedure Note ---
OB Delivery Note - Delivery Date of Delivery: 02/07/21 Surgeon: ASNDEEP HEART Estimated blood loss: other (800 cc) - Section Preop diagnosis: arrest of dilation Postop diagnosis: same section procedure: section, primary low transverse Disposition: PACU Complications: none Narrative: Indication: 30-year-old at 40 weeks and 1 days with preeclampsia with severe features is for primary low transverse due to patient not wanting to continue her induction due to poor cervical dilation. Findings: Normal uterus, tubes and ovaries. Clear fluid. No nuchal cord. Procedure: Patient taken to the operating room and prepped and draped in the usual fashion. Pfannenstiel skin incision was made and carried down to the underlying fascia. Fascia was incised and the incision was extended bilaterally. Rectus fascia dissected off the rectus muscle both superiorly and inferiorly. Peritoneum identified tented up and entered. Peritoneal incision extended superiorly and inferiorly with good visualization of the bladder. Bladder blade was placed. Uterine incision was made and the incision was extended bilaterally. The baby was delivered in the typical vertex fashion. Baby bulb suctioned at the incision site and again after delivery. Cord was delayed clamped and cut and handed off to waiting team. The placenta was delivered spontaneously. The uterus was exteriorized and cleared of all clots and debris. Uterine incision closed with 0 Vicryl in a running locked fashion followed by a second imbricating layer of 0 Vicryl. Good hemostasis was noted. Her urine was clear. Uterus tubes and ovaries were returned to the abdominal cavity. Gutters were cleared of all clots and debris. Good hemostasis noted. Interceed placed over the uterine incision and over the lower uterine segment in the midline. Attention was turned to the rectus fascia which was reapproximated with 0 Vicryl in a running fashion. Subcutaneous tissue was irrigated and reapproximated with 2-0 Vicryl in a running fashion. Skin was closed with 4-0 Vicryl in a subcuticular fashion followed by Dermabond. The procedure was concluded at this point and the patient tolerated the procedure well. All instrument and lap counts were correct. - A at 1 minute: 8 at 5 minutes: 9 Infant Gender: Female
--- NOTE | 2021-02-07 02:44 | Progress Note ---
Regional Anesthesia Block - Regional Anesthesia Block Start Time: 02:31 Stop Time: 02:35 Performed By:: MARIBELL RUIZ ([facility]) Procedure: Patient consented for TAP block for post surgical pain management. Patient identified, monitors placed, and time out performed. Mid axillary TAP identified bilaterally via ultrasound. Skin prepped bilaterally with [chlorhexidine] and [20g stimuplex] needle advanced to the TAP. 30ml [Marcaine 0.25% with 25mcg Precedex and Decadron 5mg] injected under ultrasound guidance on the [left] side. 30ml [Marcaine 0.25% with 25mcg Precedex and Decadron 5mg] injected under ultrasound guidance on the [right] side. Negative aspiration every 5mL, Patient tolerated the procedure well. No apparent complications seen.
[2021-02-07] MEDS ORDERED: OXYTOCIN DRIP 30 UNITS/500 ML BAG IV SCH (03:00)
[2021-02-07] MEDS ORDERED: EPINEPHrine RACEMIC 2.25% 0.5ML NEBU IH ONE (03:39)
[2021-02-07] MEDS ORDERED: dexAMETHasone 20 MG/5 ML VIAL ONE (04:03)
[2021-02-07] MEDS: LACTATED RINGERS 1,000 ML IV SCH (04:31)
[2021-02-07] MEDS: LEVOTHYROXINE 100 MCG TAB PO SCH (06:32)
--- NOTE | 2021-02-07 09:03 | Post Anesthesia Evaluation ---
- Post Anesthesia Evaluation Patient Participated: Yes Airway Patent: Yes Stable Respiratory Function: Yes Nausea/Vomiting: No Temp > 96.8F: Yes Pain Manageable: Yes Adequeate Hydration: Yes Anesthesia Complications: No Block Receding Appropriately: Yes Patient on Ventilator: No
--- NOTE | 2021-02-07 12:06 | Progress Note ---
Assessment and Plan A: day 1 delivery S/P primary LTCS. Preeclampsia with severe features. Anemia. P: Continue magnesium sulfate until 24 hours post delivery. Iron supplementation. Subjective - Subjective Date of service: 02/07/21 Principal diagnosis: day of delivery S/P primary LTCS Interval history: Headache has completely resolved. Patient denies chest pain, cough, shortness of breath. Tolerating regular diet. Passing gas. Receiving magnesium sulfate due to preeclampsia with severe features. Patient reports: appetite normal, pain well controlled, flatus, no nauseated : doing well Objective - Vital Signs Latest vital signs: Vital Signs Temp Pulse Pulse Resp Resp BP BP 02/07/21 11:59 84 02/07/21 11:55 88 141/79 02/07/21 11:54 95 H 02/07/21 11:49 90 02/07/21 11:48 86 02/07/21 11:44 83 02/07/21 11:39 86 02/07/21 11:34 86 02/07/21 11:29 86 02/07/21 11:25 93 H 156/84 02/07/21 11:24 95 H 02/07/21 11:19 91 H 02/07/21 11:14 90 02/07/21 11:09 86 02/07/21 11:04 81 02/07/21 10:59 93 H 02/07/21 10:58 85 02/07/21 10:55 83 121/79 02/07/21 10:54 85 02/07/21 10:49 89 02/07/21 10:44 86 02/07/21 10:39 83 02/07/21 10:34 80 02/07/21 10:32 79 02/07/21 10:29 80 02/07/21 10:25 86 139/77 02/07/21 10:24 83 02/07/21 10:21 80 02/07/21 10:19 78 02/07/21 10:14 80 02/07/21 10:11 89 02/07/21 10:09 74 02/07/21 10:04 79 02/07/21 09:59 74 02/07/21 09:55 76 137/80 02/07/21 09:54 73 02/07/21 09:51 99 H 02/07/21 09:49 88 02/07/21 09:45 97.2 F L 80 18 144/95 144/95 02/07/21 09:44 80 05 09:42 77 05 09:39 81 05 09:36 78 05 09:34 77 05 09:29 73 05 09:25 75 128/70 05 09:24 84 05 09:19 77 05 09:14 78 05 09:10 73 02/07/21 09:09 75 02/07/21 09:04 77 02/07/21 09:03 77 02/07/21 08:59 79 02/07/21 08:58 77 02/07/21 08:55 74 133/86 02/07/21 08:54 74 02/07/21 08:49 78 02/07/21 08:44 72 05 08:39 68 02/07/21 08:34 74 02/07/21 08:29 76 05 08:25 73 132/69 02/07/21 08:24 74 02/07/21 08:19 70 02/07/21 08:14 69 02/07/21 08:09 72 02/07/21 08:04 71 02/07/21 08:01 89 02/07/21 07:59 81 02/07/21 07:56 72 02/07/21 07:55 98.7 F 70 20 137/86 137/86 02/07/21 07:54 70 02/07/21 07:50 71 02/07/21 07:49 72 02/07/21 07:45 75 02/07/21 07:44 65 02/07/21 07:39 69 02/07/21 07:38 67 02/07/21 07:34 69 05 07:31 70 05 07:29 74 05 07:26 69 05 07:25 67 133/77 02/07/21 07:24 66 02/07/21 07:19 75 05 07:14 83 05 07:09 80 05 07:04 73 02/07/21 06:59 73 05 06:55 68 129/85 02/07/21 06:54 72 02/07/21 06:49 77 02/07/21 06:45 71 02/07/21 06:44 71 02/07/21 06:39 78 02/07/21 06:34 76 02/07/21 06:29 81 02/07/21 06:25 74 130/84 02/07/21 06:24 70 02/07/21 06:22 69 02/07/21 06:19 71 02/07/21 06:14 71 02/07/21 06:09 71 02/07/21 06:04 77 02/07/21 05:59 74 02/07/21 05:55 68 115/76 02/07/21 05:54 72 02/07/21 05:49 65 02/07/21 05:44 76 02/07/21 05:39 75 02/07/21 05:34 70 02/07/21 05:29 86 02/07/21 05:25 64 129/84 02/07/21 05:24 64 02/07/21 05:19 66 02/07/21 05:14 66 02/07/21 05:09 67 02/07/21 05:04 66 02/07/21 04:59 65 02/07/21 04:55 64 121/83 02/07/21 04:54 63 02/07/21 04:49 65 02/07/21 04:44 71 02/07/21 04:39 70 02/07/21 04:34 67 02/07/21 04:32 76 02/07/21 04:29 67 02/07/21 04:25 60 146/83 02/07/21 04:24 72 02/07/21 04:10 97.5 F L 75 18 112/69 02/07/21 03:48 66 18 05 03:45 76 18 110/58 02/07/21 03:30 96.9 F L 72 18 115/82 02/07/21 03:15 62 18 125/65 02/07/21 03:00 75 17 114/72 02/07/21 02:45 65 19 121/77 02/07/21 02:40 68 19 122/79 02/07/21 02:35 64 16 118/80 02/07/21 02:30 97.5 F L 68 16 113/69 02/07/21 00:47 82 02/07/21 00:42 87 02/07/21 00:37 91 H 02/07/21 00:32 87 02/07/21 00:15 91 H 02/07/21 00:10 94 H 02/07/21 00:05 90 02/07/21 00:00 87 02/06/21 23:55 88 02/06/21 23:50 92 H 02/06/21 23:45 91 H 02/06/21 23:40 98 H 02/06/21 23:22 94 H 02/06/21 23:17 95 H 02/06/21 23:12 89 02/06/21 23:07 91 H 02/06/21 23:02 92 H 02/06/21 22:57 93 H 02/06/21 22:52 85 02/06/21 22:47 92 H 02/06/21 22:45 90 145/80 02/06/21 22:42 94 H 02/06/21 22:37 91 H 02/06/21 22:32 83 02/06/21 22:27 93 H 02/06/21 22:22 83 02/06/21 22:17 85 02/06/21 22:12 87 02/06/21 22:07 90 02/06/21 22:02 90 02/06/21 21:57 95 H 02/06/21 21:52 94 H 02/06/21 21:47 103 H 02/06/21 21:45 111 H 144/83 02/06/21 21:42 112 H 02/06/21 21:37 103 H 02/06/21 21:36 122 H 168/96 02/06/21 21:32 94 H 02/06/21 21:27 94 H 02/06/21 21:22 95 H 02/06/21 21:17 93 H 02/06/21 21:12 92 H 02/06/21 21:07 87 132/85 02/06/21 21:02 87 02/06/21 20:57 86 02/06/21 20:52 83 02/06/21 20:47 87 02/06/21 20:42 85 02/06/21 20:37 89 02/06/21 20:36 93 H 128/77 02/06/21 20:32 90 02/06/21 20:27 83 02/06/21 20:22 91 H 02/06/21 20:17 85 02/06/21 20:12 87 02/06/21 20:07 90 02/06/21 20:06 86 137/91 02/06/21 20:02 85 02/06/21 19:57 83 02/06/21 19:52 90 02/06/21 19:47 83 02/06/21 19:42 83 02/06/21 19:37 80 02/06/21 19:36 81 119/73 02/06/21 19:32 88 02/06/21 19:27 86 02/06/21 19:22 86 02/06/21 19:17 86 02/06/21 19:12 80 02/06/21 19:07 84 02/06/21 19:06 98.8 F 84 16 127/83 127/83 02/06/21 19:02 84 02/06/21 18:57 84 02/06/21 18:52 86 02/06/21 18:39 100 H 140/84 02/06/21 18:36 87 144/89 02/06/21 18:34 84 02/06/21 18:29 89 02/06/21 18:24 85 02/06/21 18:19 84 02/06/21 18:14 80 02/06/21 18:09 90 02/06/21 18:08 88 02/06/21 18:06 78 134/81 02/06/21 18:04 85 02/06/21 17:59 91 H 02/06/21 17:54 87 02/06/21 17:49 95 H 02/06/21 17:44 85 02/06/21 17:39 92 H 02/06/21 17:36 81 122/81 02/06/21 17:34 79 02/06/21 17:29 90 02/06/21 17:24 80 02/06/21 17:19 80 02/06/21 17:14 78 02/06/21 17:09 86 02/06/21 17:07 78 118/72 02/06/21 17:04 74 02/06/21 16:59 80 05 16:54 82 05 16:49 80 05 16:44 85 05 16:39 97.6 F 82 16 02/06/21 16:37 87 128/79 05 16:34 90 05 16:29 92 H 02/06/21 16:24 89 02/06/21 16:19 88 02/06/21 16:14 89 02/06/21 16:09 89 02/06/21 16:06 86 147/60 02/06/21 16:04 82 02/06/21 15:59 83 02/06/21 15:54 86 02/06/21 15:49 89 02/06/21 15:44 89 05 15:39 89 05 15:36 85 121/70 02/06/21 15:34 86 02/06/21 15:29 95 H 02/06/21 15:24 87 02/06/21 15:19 85 02/06/21 15:14 89 02/06/21 15:09 88 02/06/21 15:06 86 119/77 02/06/21 15:04 89 02/06/21 14:59 95 H 02/06/21 14:54 90 02/06/21 14:49 88 02/06/21 14:44 88 02/06/21 14:43 98.5 F 16 02/06/21 14:39 83 02/06/21 14:34 80 02/06/21 14:29 77 02/06/21 14:24 77 02/06/21 14:20 80 119/73 02/06/21 14:19 84 02/06/21 13:41 96 H 02/06/21 13:36 89 118/74 02/06/21 13:31 81 02/06/21 13:26 86 02/06/21 13:21 87 02/06/21 13:16 86 02/06/21 13:11 88 02/06/21 13:06 86 141/77 02/06/21 13:01 100 H 02/06/21 12:56 83 02/06/21 12:51 84 02/06/21 12:46 89 02/06/21 12:41 85 02/06/21 12:37 90 117/75 02/06/21 12:36 89 02/06/21 12:31 87 02/06/21 12:26 91 H 02/06/21 12:21 88 02/06/21 12:16 84 02/06/21 12:11 88 02/06/21 12:06 91 H 125/80 Pulse Ox 02/07/21 11:59 95 02/07/21 11:55 02/07/21 11:54 95 02/07/21 11:49 95 02/07/21 11:48 94 02/07/21 11:44 96 02/07/21 11:39 95 02/07/21 11:34 96 02/07/21 11:29 96 02/07/21 11:25 02/07/21 11:24 96 02/07/21 11:19 95 02/07/21 11:14 96 02/07/21 11:09 95 02/07/21 11:04 95 02/07/21 10:59 94 02/07/21 10:58 94 02/07/21 10:55 02/07/21 10:54 96 02/07/21 10:49 95 02/07/21 10:44 96 02/07/21 10:39 95 02/07/21 10:34 95 02/07/21 10:32 94 02/07/21 10:29 96 02/07/21 10:25 02/07/21 10:24 96 02/07/21 10:21 94 02/07/21 10:19 95 02/07/21 10:14 95 02/07/21 10:11 94 02/07/21 10:09 96 02/07/21 10:04 95 02/07/21 09:59 95 02/07/21 09:55 02/07/21 09:54 94 02/07/21 09:51 93 02/07/21 09:49 95 02/07/21 09:45 95 02/07/21 09:44 96 02/07/21 09:42 94 02/07/21 09:39 95 02/07/21 09:36 94 02/07/21 09:34 95 02/07/21 09:29 96 02/07/21 09:25 02/07/21 09:24 95 02/07/21 09:19 95 05 09:14 96 05 09:10 94 05 09:09 97 05 09:04 96 05 09:03 94 05 08:59 95 05 08:58 94 05 08:55 05 08:54 96 02/07/21 08:49 96 02/07/21 08:44 96 02/07/21 08:39 96 05 08:34 95 05 08:29 96 05 08:25 05 08:24 96 02/07/21 08:19 96 05 08:14 95 02/07/21 08:09 95 02/07/21 08:04 96 02/07/21 08:01 94 02/07/21 07:59 96 02/07/21 07:56 94 02/07/21 07:55 95 02/07/21 07:54 94 02/07/21 07:50 94 02/07/21 07:49 92 05 07:45 93 05 07:44 95 05 07:39 94 05 07:38 94 05 07:34 96 02/07/21 07:31 94 05 07:29 95 05 07:26 94 02/07/21 07:25 05 07:24 95 02/07/21 07:19 96 02/07/21 07:14 95 02/07/21 07:09 96 02/07/21 07:04 96 05 06:59 95 05 06:55 05 06:54 95 0521 06:49 95 0521 06:45 94 0521 06:44 95 05 06:39 95 0521 06:34 95 0521 06:29 95 0521 06:25 0521 06:24 95 0521 06:22 94 0521 06:19 95 05 06:14 96 05 06:09 95 0521 06:04 95 02/07/21 05:59 95 02/07/21 05:55 02/07/21 05:54 96 02/07/21 05:49 96 02/07/21 05:44 96 02/07/21 05:39 95 02/07/21 05:34 96 02/07/21 05:29 95 02/07/21 05:25 02/07/21 05:24 95 02/07/21 05:19 95 02/07/21 05:14 95 02/07/21 05:09 96 02/07/21 05:04 96 02/07/21 04:59 96 02/07/21 04:55 02/07/21 04:54 96 02/07/21 04:49 96 02/07/21 04:44 96 02/07/21 04:39 95 02/07/21 04:34 96 02/07/21 04:32 94 02/07/21 04:29 96 02/07/21 04:25 02/07/21 04:24 96 02/07/21 04:10 97 02/07/21 03:48 02/07/21 03:45 98 02/07/21 03:30 98 02/07/21 03:15 98 02/07/21 03:00 97 02/07/21 02:45 97 02/07/21 02:40 98 02/07/21 02:35 98 02/07/21 02:30 98 02/07/21 00:47 97 02/07/21 00:42 97 02/07/21 00:37 97 02/07/21 00:32 96 02/07/21 00:15 96 02/07/21 00:10 97 02/07/21 00:05 97 02/07/21 00:00 97 02/06/21 23:55 97 02/06/21 23:50 96 02/06/21 23:45 96 02/06/21 23:40 95 02/06/21 23:22 97 02/06/21 23:17 95 02/06/21 23:12 96 02/06/21 23:07 97 02/06/21 23:02 97 02/06/21 22:57 97 02/06/21 22:52 97 02/06/21 22:47 97 02/06/21 22:45 02/06/21 22:42 97 02/06/21 22:37 97 02/06/21 22:32 96 02/06/21 22:27 97 02/06/21 22:22 97 02/06/21 22:17 96 02/06/21 22:12 97 02/06/21 22:07 96 02/06/21 22:02 96 02/06/21 21:57 96 02/06/21 21:52 97 02/06/21 21:47 96 02/06/21 21:45 02/06/21 21:42 93 02/06/21 21:37 96 02/06/21 21:36 94 02/06/21 21:32 97 02/06/21 21:27 97 02/06/21 21:22 97 02/06/21 21:17 96 02/06/21 21:12 97 02/06/21 21:07 96 02/06/21 21:02 96 02/06/21 20:57 97 02/06/21 20:52 97 02/06/21 20:47 97 02/06/21 20:42 97 02/06/21 20:37 96 02/06/21 20:36 02/06/21 20:32 97 02/06/21 20:27 96 02/06/21 20:22 97 02/06/21 20:17 96 02/06/21 20:12 97 02/06/21 20:07 97 02/06/21 20:06 02/06/21 20:02 97 02/06/21 19:57 96 02/06/21 19:52 96 02/06/21 19:47 96 02/06/21 19:42 97 02/06/21 19:37 96 02/06/21 19:36 02/06/21 19:32 97 02/06/21 19:27 97 02/06/21 19:22 96 02/06/21 19:17 97 02/06/21 19:12 97 02/06/21 19:07 97 02/06/21 19:06 97 02/06/21 19:02 96 02/06/21 18:57 96 02/06/21 18:52 96 02/06/21 18:39 02/06/21 18:36 02/06/21 18:34 97 02/06/21 18:29 96 02/06/21 18:24 97 02/06/21 18:19 97 02/06/21 18:14 96 02/06/21 18:09 96 02/06/21 18:08 94 02/06/21 18:06 02/06/21 18:04 97 02/06/21 17:59 97 02/06/21 17:54 97 02/06/21 17:49 96 02/06/21 17:44 97 02/06/21 17:39 96 02/06/21 17:36 02/06/21 17:34 96 02/06/21 17:29 97 02/06/21 17:24 96 02/06/21 17:19 96 02/06/21 17:14 96 02/06/21 17:09 96 02/06/21 17:07 02/06/21 17:04 96 02/06/21 16:59 96 02/06/21 16:54 97 02/06/21 16:49 97 02/06/21 16:44 97 02/06/21 16:39 96 02/06/21 16:37 02/06/21 16:34 96 02/06/21 16:29 96 02/06/21 16:24 97 02/06/21 16:19 96 02/06/21 16:14 96 02/06/21 16:09 96 02/06/21 16:06 02/06/21 16:04 97 02/06/21 15:59 96 02/06/21 15:54 96 02/06/21 15:49 97 02/06/21 15:44 97 02/06/21 15:39 96 02/06/21 15:36 02/06/21 15:34 97 02/06/21 15:29 96 02/06/21 15:24 97 02/06/21 15:19 97 02/06/21 15:14 96 02/06/21 15:09 96 02/06/21 15:06 02/06/21 15:04 95 02/06/21 14:59 97 02/06/21 14:54 97 02/06/21 14:49 97 02/06/21 14:44 96 02/06/21 14:43 05 14:39 97 02/06/21 14:34 96 02/06/21 14:29 96 02/06/21 14:24 96 02/06/21 14:20 02/06/21 14:19 96 02/06/21 13:41 97 02/06/21 13:36 97 02/06/21 13:31 96 02/06/21 13:26 96 02/06/21 13:21 96 02/06/21 13:16 96 02/06/21 13:11 96 02/06/21 13:06 97 02/06/21 13:01 97 02/06/21 12:56 96 02/06/21 12:51 97 02/06/21 12:46 96 02/06/21 12:41 97 02/06/21 12:37 02/06/21 12:36 96 02/06/21 12:31 96 02/06/21 12:26 97 02/06/21 12:21 97 02/06/21 12:16 96 02/06/21 12:11 97 02/06/21 12:06 96 Intake and Output 02/06/21 02/07/21 02/07/21 23:59 07:59 15:59 Intake Total 4328.070 8516 Output Total 1000 1925 275 Balance 134.120 8180 -275 Intake: IV 8732.296 0755 Lactated Ringers 1,000 ml 941.667 655 @ 100 mls/hr IV DIRECT MIGUE Rx#:[id number] MAGNESIUM SULFATE 40GM/ 463.75 1000ML 40 gm In 1,000 ml @ 2 GM/HR 50 mls/hr IV DIRECT MIGUE Rx#:[id number] PITOCin/NS 30 UNIT/500ML 28.867 30 units In 500 ml @ 2 mls/hr IV TITR MIGUE Rx#: [id number] Oral 118 100 Output: Urine 1000 1925 275 Indwelling Catheter 1000 925 275 Other: Total, Intake Amount 118 100 Total, Output Amount 450 200 275 Estimated Blood Loss 800 - Exam Cardiovascular: Present: Regular rate Lungs: Present: Clear to auscultation Abdomen: Present: normal appearance, soft, normal bowel sounds. Absent: distention, tenderness, guarding, rigidity Uterus: Present: normal, firm, fundal height below umbilicus. Absent: noah gginess, tenderness Extremities: Present: normal. Absent: tenderness Incision: Present: dry, dressed - Labs Labs: Abnormal lab results 02/06/21 02/06/21 02/06/21 Range/Units 18:00 18:27 22:41 Sodium 131 L (137-145) mmol/L Carbon Dioxide 20 L (22-30) mmol/L Calcium 6.9 L (8.4-10.2) mg/dL Magnesium 5.40 H 5.70 H (1.7-2.3) mg/dL Alkaline Phosphatase 158 H (35-129) units/L Total Protein 5.6 L (6.3-8.2) g/dL Albumin 3.1 L (3.9-5) g/dL 02/07/21 Range/Units 09:21 Sodium (137-145) mmol/L Carbon Dioxide (22-30) mmol/L Calcium (8.4-10.2) mg/dL Magnesium 4.80 H (1.7-2.3) mg/dL Alkaline Phosphatase (35-129) units/L Total Protein (6.3-8.2) g/dL Albumin (3.9-5) g/dL
[2021-02-07] MEDS: oxyCODONE /ACETAMINOPHEN 5-325MG TAB PO PRN ×2 (12:29→21:53)
[2021-02-07] MEDS: FERROUS SULFATE 325 MG TAB PO SCH (15:50)
[2021-02-07] MEDS: IBUPROFEN 800 MG TAB PO PRN ×2 (16:47→23:43)
[2021-02-08] MEDS ORDERED: IBUPROFEN 800 MG TAB PO PRN (02:03)
[2021-02-08 07:30] LABS: Hematocrit 28.8 % (30.3-42.9); Hemoglobin 9.8 gm/dl (10.1-14.3)
--- NOTE | 2021-02-08 10:39 | Progress Note ---
Assessment and Plan A: POD #1 Preclampsia Poor Pain Control Hypothyroidism Asymptomatic Anemia P: Follow Routine PostOp Orders Sanborn 5/325mg PO q 4 hours PRN pain Continue Levothyroxine 100mg PO qd Increase Dietary Iron Subjective - Subjective Date of service: 02/08/21 Principal diagnosis: day of delivery S/P primary LTCS Patient reports: appetite normal, voiding normally, flatus, pain poorly con trolled, ambulating normally, other (Denies HAs, visual changes, N&V, and epigastic pain) : doing well, bottle feeding Objective - Vital Signs Latest vital signs: Vital Signs Temp Pulse Resp BP BP Pulse Ox 02/08/21 02:00 98.1 F 86 16 131/83 131/83 97 02/08/21 01:55 82 97 02/08/21 01:50 85 97 02/08/21 01:45 82 97 02/08/21 01:40 74 97 02/08/21 01:35 83 97 02/08/21 01:30 81 97 02/08/21 01:25 87 97 02/08/21 01:20 96 H 96 02/08/21 01:15 77 97 02/08/21 01:10 81 149/94 97 02/08/21 01:05 88 97 02/08/21 01:00 89 95 02/08/21 00:59 94 H 94 02/08/21 00:55 84 96 02/08/21 00:50 90 148/89 96 02/08/21 00:45 87 97 02/08/21 00:40 99 H 96 02/08/21 00:37 105 H 94 02/08/21 00:35 82 97 02/08/21 00:30 78 98 02/08/21 00:25 74 97 02/08/21 00:20 77 97 02/08/21 00:15 80 98 02/08/21 00:10 76 97 02/08/21 00:05 77 97 02/08/21 00:00 78 97 02/07/21 23:55 76 97 02/07/21 23:50 75 143/87 98 02/07/21 23:45 72 97 02/07/21 23:40 85 98 02/07/21 23:35 76 97 02/07/21 23:30 73 97 02/07/21 23:25 76 97 05 23:20 82 96 05 23:15 80 97 05 23:10 77 97 05 23:05 73 97 05 23:00 81 97 05 22:55 73 97 05 22:50 78 148/89 97 02/07/21 22:45 83 98 02/07/21 22:40 76 97 02/07/21 22:35 79 97 05 22:30 79 97 05 22:25 81 97 05 22:20 78 97 02/07/21 22:15 78 97 05 22:10 75 98 05 22:05 80 97 02/07/21 22:00 80 97 02/07/21 21:55 84 98 02/07/21 21:50 79 137/86 97 02/07/21 21:45 74 97 02/07/21 21:40 87 97 02/07/21 21:35 79 97 02/07/21 21:30 80 97 05 21:25 80 97 05 21:20 88 96 05 21:15 80 97 05 21:10 75 97 02/07/21 21:05 81 97 02/07/21 21:00 78 98 05 20:55 80 97 02/07/21 20:50 82 136/87 97 02/07/21 20:45 82 97 02/07/21 20:40 81 97 05 20:35 81 97 02/07/21 20:30 89 96 05 20:25 83 97 05 20:20 79 97 05 20:15 81 98 05 20:10 82 97 05 20:05 79 97 02/07/21 20:00 97.5 F L 81 97 02/07/21 19:55 80 97 05 19:50 79 124/68 97 02/07/21 19:45 94 H 97 05 19:40 95 H 96 02/07/21 19:35 82 97 05 19:30 82 97 05 19:25 78 97 05/16/21 19:20 79 97 0516/21 19:15 78 97 051621 19:10 78 97 051621 19:05 80 97 0516/21 19:00 81 98 0516/21 18:59 82 140/89 0516/21 18:55 85 97 0516/21 18:50 83 152/93 97 0516/21 18:45 87 97 0516/21 18:40 80 96 051621 18:35 80 97 0516/21 18:30 82 97 0516/21 18:25 82 97 0516/21 18:20 86 97 051621 18:15 87 97 051621 18:10 88 97 051621 18:05 92 H 96 051621 18:00 92 H 97 051621 17:55 93 H 97 051621 17:50 98 H 131/86 97 051621 17:45 87 97 051621 17:40 78 97 051621 17:35 75 96 0516/21 17:30 74 98 051621 17:25 74 98 0516/21 17:20 72 97 051621 17:15 74 98 051621 17:10 74 97 051621 17:05 74 98 051621 17:00 70 97 051621 16:55 76 97 0516/21 16:50 73 143/93 97 051621 16:45 69 97 0516/21 16:40 74 97 0516/21 16:35 73 97 0516/21 16:30 79 97 0516/21 16:25 76 97 0516/21 16:20 72 97 0516/21 16:15 78 97 0516/21 16:10 81 97 0516/21 16:05 78 96 0516/21 16:00 79 96 0516/21 15:55 78 96 0516/21 15:50 79 97 0516/21 15:46 98.8 F 85 14 132/82 100 0516/21 15:45 82 96 0516/21 15:32 86 132/82 05/16/21 13:59 85 95 05/16 13:56 86 94 0516 13:55 82 138/85 0516 13:54 87 95 051621 13:51 81 94 051621 13:49 79 95 051621 13:45 86 94 051621 13:44 79 95 051621 13:39 85 95 0516 13:34 84 95 0516 13:33 81 94 0516 13:29 81 95 051621 13:25 81 136/81 0516 13:24 84 95 0516 13:19 81 95 051621 13:17 78 94 0516 13:14 81 95 0516 13:11 84 94 05 13:09 84 97 05 13:06 86 94 05 13:04 87 95 05 12:59 84 94 05 12:55 86 140/90 05 12:54 84 94 05 12:49 85 95 05 12:44 84 95 05 12:39 90 95 05 12:38 89 94 05 12:34 91 H 95 05 12:32 97.2 F L 86 18 133/77 95 05 12:31 88 94 05 12:29 86 95 05 12:25 84 133/77 05 12:24 87 95 05 12:19 90 95 0521 12:14 87 95 0521 12:09 88 96 05 12:06 90 94 05 12:04 90 95 0516 11:59 84 95 051621 11:55 88 141/79 051621 11:54 95 H 95 051621 11:49 90 95 051621 11:48 86 94 051621 11:44 83 96 051621 11:39 86 95 051621 11:34 86 96 051621 11:29 86 96 05/16/21 11:25 93 H 156/84 02/07/21 11:24 95 H 96 02/07/21 11:19 91 H 95 02/07/21 11:14 90 96 02/07/21 11:09 86 95 02/07/21 11:04 81 95 02/07/21 10:59 93 H 94 02/07/21 10:58 85 94 02/07/21 10:55 83 121/79 02/07/21 10:54 85 96 02/07/21 10:49 89 95 02/07/21 10:44 86 96 02/07/21 10:39 83 95 Intake and Output 02/07/21 02/08/21 02/08/21 22:59 06:59 14:59 Intake Total 687.5 Output Total 1340 1650 Balance -1340 -962.5 Intake: IV 687.5 MAGNESIUM SULFATE 40GM/ 687.5 1000ML 40 gm In 1,000 ml @ 2 GM/HR 50 mls/hr IV DIRECT MIGUE Rx#:[id number] Output: Urine 1340 1650 Indwelling Catheter 1340 1350 Void 300 Other: Total, Output Amount 225 300 # Voids Void 1 - Exam Breasts: Present: normal Cardiovascular: Present: Regular rate Lungs: Present: Clear to auscultation, Normal air movement Abdomen: Present: normal appearance, soft, normal bowel sounds Uterus: Present: normal, firm, fundal height below umbilicus Extremities: Present: normal Incision: Present: dry, dressed - Labs Labs: Abnormal lab results 02/07/21 02/07/21 02/08/21 Range/Units 15:13 16:19 01:03 Hgb (10.1-14.3) gm/dl Hct (30.3-42.9) % Magnesium 5.30 H 5.10 H 4.70 H (1.7-2.3) mg/dL 02/08/21 Range/Units 06:39 Hgb 9.8 L (10.1-14.3) gm/dl Hct 28.8 L (30.3-42.9) % Magnesium (1.7-2.3) mg/dL
[2021-02-08] MEDS: HYDROcodone/ACETAMINOPHEN 5-325 MG TAB PO PRN ×2 (10:53→22:28)
[2021-02-08] MEDS: FERROUS SULFATE 325 MG TAB PO SCH (10:53)
[2021-02-08] MEDS: IBUPROFEN 800 MG TAB PO PRN (18:07)
[2021-02-09] MEDS: HYDROcodone/ACETAMINOPHEN 5-325 MG TAB PO PRN ×2 (05:14→10:14)
[2021-02-09] MEDS: LEVOTHYROXINE 100 MCG TAB PO SCH (05:48)
[2021-02-09] MEDS: FERROUS SULFATE 325 MG TAB PO SCH (10:14)
--- NOTE | 2021-02-09 11:05 | Discharge Summary ---
Providers - Providers Date of Admission: 02/05/21 15:37 Date of discharge: 02/09/21 Attending physician: SANDEEP HEART Primary care physician: SANDEEP HEART Hospitalization Reason for admission: active labor Delivery: Procedure: primary low transverse Episiotomy: none Laceration: none Incision: normal, dry, intact Other procedures: none complications: other (asymptomatic anemia) Discharge diagnosis: IUP at term delivered baby: female Hospital course: Pt was admitted in active labor and had a primary c/s r/t non reassuring FHT w/o pp complications.See H&P, delivery summary, and pp notes. Condition at discharge: Stable Disposition: - TO HOME OR SELFCARE Plan - Discharge Medications Prescriptions: Ibuprofen [Motrin 800 MG tab] 800 mg PO Q6H PRN #30 tablet PRN Reason: Pain, Mild (1-3) oxyCODONE /ACETAMINOPHEN [Percocet 5/325 mg] 1 tab PO Q6H PRN #30 tablet PRN Reason: Pain, Moderate (4-6) - Provider Discharge Summary Activity: routine, no sex for 6 weeks, no heavy lifting 4 weeks, no strenuous exercise Diet: routine Instructions: routine Additional instructions: [] Smoking cessation referral if applicable(refer to patient education folder for contact #) [] Refer to [facility] Booklet Call your doctor immediately for: * Fever > 100.5 * Heavy vaginal bleeding ( >1 pad per hour) * Severe persistent headache * Shortness of breath * Reddened, hot, painful area to leg or breast * Drainage or odor from incision. * Keep incision clean and dry at all times and follow doctor's instructions regarding bathing/showering - Follow up plan Follow up: SANDEEP HEART MD [Primary Care Provider] - 14 Days
[2021-02-09 18:36] VITALS: BP 141/79
== END 2021-02-09 18:00 | disposition home or self-care (01) | DRG 765 ==
LOC: TRG 10:44 → APU 10:46 → LD 15:32 → TRG 16:22 → OB 02-08 03:21
PROVIDERS: ADMIT Obstetrics & Gynecology; ATTEND Obstetrics & Gynecology
PROC: 10D00Z1 Extraction of Products of Conception, Low, Open Approach (ICD-10-PCS; principal; 2021-02-07)
PROC: 3E0P7VZ Introduction of Hormone into Female Reproductive, Via Natural or Artificial Opening (ICD-10-PCS; 2021-02-07)
DX: O14.10 Severe pre-eclampsia, unspecified trimester (principal); D62 Acute posthemorrhagic anemia; O32.4XX0 Maternal care for high head at term, not applicable or unspecified; O99.280 Endocrine, nutritional and metabolic diseases complicating pregnancy, unspecified trimester; O12.14 Gestational proteinuria, complicating childbirth; Z20.822 Contact with and (suspected) exposure to COVID-19; O99.02 Anemia complicating childbirth; O99.284 Endocrine, nutritional and metabolic diseases complicating childbirth; E03.9 Hypothyroidism, unspecified; Z37.0 Single live birth; Z3A.39 39 weeks gestation of pregnancy
CPT/HCPCS: 36415; 59025; 76815; 76819; 80053; 81001; 82565; 82962; 83615; 83735; 84450; 84460; 84550; 85014; 85018; 85027; 86592; 86850; 86900; 86901; 94640; 96360; 96365; G0378; J0690; J1100; J1885; J2405; J2590; J2765; J3010; J3475; J3490; J7120; U0003